=== PATIENT | male | born 1985 | race Caucasian/White ===

== ENCOUNTER → 2017-05-26 | Outpatient (CLI) | payer BC ==
--- NOTE | 2017-05-26 08:07 | DIAGNOSTIC IMAGING REPORT ---
SOFT TISS HEAD/NECK-THYROID CLINICAL HISTORY: 31 years-old Male presenting with FAMILY HX MALIGNANT NEOPLASM. TECHNIQUE: Real-time grayscale and color and spectral Doppler ultrasound imaging of the thyroid and base of the neck was performed. COMPARISON: None. FINDINGS: Right lobe: Heterogeneous echotexture. The right lobe of the thyroid measures 5.4 x 2.2 x 2.2 cm. No nodules. No parenchymal hyperemia. Left lobe: Heterogeneous echotexture. The left lobe of the thyroid measures 4.9 x 1.7 x 1.6 cm. No nodules. No parenchymal hyperemia. Isthmus: The isthmus measures 5 mm in thickness. No nodules. IMPRESSION: Heterogeneous thyroid parenchyma could suggest underlying primary thyroid disease such as Jose's thyroiditis or Graves' disease. No nodules. Electronically signed by: Brooks Castillo M.D. 05/26/2017 8:06 AM Dictated Date/Time: 05/26/2017 8:05 AM
== END | disposition home or self-care (01) ==
LOC: C.ULTR 07:37
PROVIDERS: ATTEND Family Medicine
DX: F41.9 Anxiety disorder, unspecified (principal); Z80.8 Family history of malignant neoplasm of other organs or systems; E01.0 Iodine-deficiency related diffuse (endemic) goiter